=== PATIENT | male | born 1955 | race Caucasian/White ===

== ENCOUNTER 2023-01-29 13:14 | Emergency (ER) | payer OTHER ==
[~2023-01-29] VITALS: Ht 182.9 cm; Wt 81.6 kg
[2023-01-29 13:15] VITALS: O2SAT 99
--- NOTE | 2023-01-29 13:15 | NUR ---
BIB [facility] from an urgent care with c/o new onset A-Fib. Pt states he recently started taking Zentrex for weight loss, was feeling weak and dizzy today so he went to the urgent care. No reported chest pain, palpitations or SOB. Pt to room ER1B via EMS Dr.Hernandez wade at bedside for MSE.
[2023-01-29] MEDS ORDERED: LOSA25TA27 PO (13:24)
[2023-01-29] MEDS ORDERED: ALFU10TA PO (13:25)
[2023-01-29] MEDS ORDERED: [UNRECOGNIZED DRUG - OTHER] (13:25)
[2023-01-29] MEDS ORDERED: DILTIAZEM HCL IV 20 MG in IV DEXTROSE 5% 100 ML IV ONE (13:30)
[2023-01-29 13:43] LABS: CARBON DIOXIDE 26 mmol/L (21-32); CHLORIDE 102 mmol/L (98-107); CREATININE 1.3 mg/dL (0.6-1.3); POTASSIUM 4.4 mmol/L (3.5-5.1); UREA NITROGEN, BLOOD 33 mg/dL (7-18)
[2023-01-29] MEDS ORDERED: [UNRECOGNIZED DRUG - OTHER] IV ONE (13:43)
[2023-01-29] MEDS ORDERED: IV NORMAL SALINE 500 ML BAG IV ONE (13:45)
[2023-01-29 13:54] LABS: ALANINE AMINOTRANSFERASE 24 U/L (16-63); ALKALINE PHOSPHATASE 52 U/L (50-136); ASPARTATE AMINOTRANSFERASE 14 U/L (15-37); BILIRUBIN,DIRECT 0.2 mg/dL (0.0-0.2); BILIRUBIN,TOTAL 0.6 mg/dL (0.2-1.0); TOTAL PROTEIN, SERUM 7.5 g/dL (6.4-8.2)
[2023-01-29] MEDS ORDERED: DILTIAZEM HCL 25 MG IV ONE (13:56)
[2023-01-29] MEDS ORDERED: DILTIAZEM HCL 25 MG IV IV ONE (14:00)
[2023-01-29 14:11] VITALS: BP 99/80
[2023-01-29 14:11] LABS: HEMATOCRIT 41.3 % (36.7-47.1)
[2023-01-29 14:14] LABS: MEAN CORPUSCULAR HEMOGLOBIN 27.6 uug (23.8-33.4); MEAN CORPUSCULAR VOLUME 83.4 fL (73.0-96.2); PLATELET COUNT (AUTO) 168 K/uL (152-348)
--- NOTE | 2023-01-29 14:26 | NUR ---
[facility] CALLED AT THIS TIME.
[2023-01-29] MEDS ORDERED: ENOXAPARIN SODIUM 80 MG/0.8 ML DISP.SYRIN SQ ONE (14:27)
[2023-01-29] MEDS ORDERED: ASPIRIN 325 MG TABLET ONE (14:28)
[2023-01-29] MEDS ORDERED: ASPIRIN 325 MG TABLET PO ONE (14:30)
[2023-01-29] MEDS ORDERED: ENOXAPARIN SODIUM 30 MG/0.3 ML DISP.SYRIN SUBCUT ONE (14:30)
--- NOTE | 2023-01-29 15:00 | NUR ---
Per ER physician patient to be transfered out for [facility] level of care for possible Interventional Cardiology. Per ER admitting they will contact patients healthcare plan [facility].
--- NOTE | 2023-01-29 15:07 | NUR ---
current hr is 82, 117/68, 97%
[2023-01-29] MEDS ORDERED: DILTIAZEM HCL IV 125 MG in IV DEXTROSE 5% 100 ML IV ONE (15:15)
--- NOTE | 2023-01-29 16:15 | NUR ---
[facility] WNL. awaiting for transfer
--- NOTE | 2023-01-29 17:00 | NUR ---
Per ER admitting they received call from [facility], possible transfer to [facility] or [facility]. [facility] to call back with further information.
--- NOTE | 2023-01-29 18:36 | NUR ---
Pt. will be transferred to [facility]. per transfer center, pt. will be transferred after change of shift
--- NOTE | 2023-01-29 18:38 | NUR ---
troponin 609, informed MD
--- NOTE | 2023-01-29 19:13 | NUR ---
Dionne from [facility] called with transfer information. The patient is accepted to [facility] but will be transferred to the Emergency Department and was accepted by LUAN Rabago. ETA for transport is 45 minutes.
--- NOTE | 2023-01-29 19:28 | NUR ---
Spoke to Dionne regarding a phone number report. Per Dionne, "nursing handoff report is not needed as the ERMD is already aware of the patient".
--- NOTE | 2023-01-29 20:02 | NUR ---
[facility] ambulance is here for patient transport to [facility] ED. VSS. Transfer packet handed to EMT's prior to departure. All belongins returned to patient on departure.
== END 2023-01-29 20:07 | disposition short-term general hospital (02) ==
LOC: ER 13:14
DX: I48.91 Unspecified atrial fibrillation (principal); Z88.2 Allergy status to sulfonamides; Z79.899 Other long term (current) drug therapy
CPT/HCPCS: 99291; 96361; 96374; 71045; 80076; 80048; 85025; 85730; 84484 ×2; 36415; 93005 ×2; 96372; J3490 ×2; J1650; J7040; A4663